=== PATIENT | male | born 2000 | race Caucasian/White ===

== ENCOUNTER → 2019-07-05 | Outpatient (CLI) | payer OTHER ==
--- NOTE | 2019-07-05 19:28 | REPVR ---
PROCEDURE INFORMATION: Exam: CT Maxillofacial Without Contrast Exam date and time: 07/05/2019 6:37 PM Age: 18 years old Clinical indication: Screening exam; Preop for oral surgery TECHNIQUE: Imaging protocol: Computed tomography images of the face without contrast. Radiation optimization: All CT scans at this facility use at least one of these dose optimization techniques: automated exposure control; mA and/or kV adjustment per patient size (includes targeted exams where dose is matched to clinical indication); or iterative reconstruction. COMPARISON: No relevant prior studies available. FINDINGS: Orbits: Orbits are normal. Globes are unremarkable. Sinuses: Normal. No air-fluid levels. Bones/joints: No acute fracture. Dental: The maxillary incisors are angulated anteriorly resulting in malocclusion. Soft tissues: Unremarkable. IMPRESSION: 1. No acute findings. 2. Malocclusion. Electronically signed by: Kings Renee On 07/05/2019 19:28:10 PM
== END ==
LOC: M RAD 18:10
PROVIDERS: ATTEND Dentist
DX: Z01.818 Encounter for other preprocedural examination (principal); M26.4 Malocclusion, unspecified

== ENCOUNTER → 2019-07-25 | Outpatient (CLI) | payer OTHER ==
--- NOTE | 2019-07-25 10:02 | REP ---
MAXILLOFACIAL CT STUDY WITHOUT CONTRAST: HISTORY: Preop. Surgical procedure. Orthognathic surgery planned. Comparison maxillofacial CT study July 05, 2019. TECHNIQUE: Helical scanning is acquired. 3 mm axial, MPR coronal and MPR sagittal images are reformatted for interpretation. 0.5 mm slices are acquired as well as requested. FINDINGS: The maxillary, sphenoidal, ethmoidal, frontal, and mastoid sinuses are clear. The paranasal sinuses in general are large and extensively developed. This is unchanged. There is slight rightward deviation of the nasal septum without a septal beak. Nasal turbinate and soft tissues are unremarkable. No nasal polyp is seen. Ostiomeatal complexes are patent bilaterally. 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 No bony destructive lesion is seen. No change from the recently performed comparison study. Electronically Signed by Melo Castro MD 07/25/2019 10:04 A
== END ==
LOC: M RAD 09:26
PROVIDERS: ATTEND Dentist
DX: Z01.818 Encounter for other preprocedural examination (principal); J34.2 Deviated nasal septum

== ENCOUNTER → 2019-10-27 | Outpatient (CLI) | payer OTHER | LOC: M LABSMTC 09:20 | PROVIDERS: ATTEND Anesthesiology | DX: Z03.818 Encounter for observation for suspected exposure to other biological agents ruled out (principal); Z11.59 Encounter for screening for other viral diseases | CPT/HCPCS: C9803; U0003 ==

== ENCOUNTER 2019-10-30 07:30 | Observation (INO) | payer BC, OTHER ==
[~2019-10-30] VITALS: Ht 193 cm; Wt 118.7 kg
[~2019-10-30 07:30] MED LIST: LR 1,000 ML IV ONE; ceFAZolin SOD 2 GM in IV 1 EA IV ONE; dexameTHASONE 4 MG/ML 1ML VIAL (J1100 PER 1MG) IV ONE
--- NOTE | 2019-11-01 11:58 | HPEPDOC ---
General Surgery H&P Date of Admission Nov 04, 2019 Primary Care Physician: Yasir Kapoor DDS Attending Physician: Yasir Kapoor DDS History and Physical CHIEF COMPLAINT: Mandibular AP hypoplasia and mandibular asymmetry. HISTORY OF PRESENT ILLNESS: Patient has been in ortho for 4 years in preparation for the surgery. ALLERGIES: NKDA HOME MEDICATIONS: None PAST MEDICAL HISTORY: 1. Denies PAST SURGICAL HISTORY: 1. [place] tooth removal 2018, No anesthetic complications PERSONAL/SOCIAL HISTORY: Smokes < .5 PPD and occasional marijuana use. REVIEW OF SYSTEMS: GENERAL: Denies chills, fatigue, fever, weight gain and weight loss. HEENT: Denies blurred vision and double vision. Denies ear symptoms. Denies hoarseness. Mandibular Ap hypoplasia. Retrognathia. NECK: Denies any neck pain, FROM. CARDIOVASCULAR: Denies chest pain and palpitations, RRR no M/R/G MUSCULOSKELETAL: Denies arthralgias, back pain and thrombophlebitis. SKIN: Denies rash. NEUROLOGIC: Denies headache, stroke and transient ischemic attack. PSYCHIATRIC: Denies anxiety and depression. ENDOCRINE: Denies thyroid disease. HEMATOLOGY/ONCOLOGY: Denies any bleeding or clotting disorder. HEART: Denies any chest pains, palpitations, paroxysmal dyspnea, orthopnea. PULMONARY: Denies chronic cough, dyspnea and wheezing. GASTROINTESTINAL: Denies rectal bleeding, family history of colon cancer, constipation, diarrhea, dysphagia, heartburn and jaundice. GENITOURINARY: Denies dysuria, frequency, hematuria and nocturia. ENDOCRINE: Denies polydipsia, polyphagia, polyuria, heat or cold intolerance. INFECTIOUS: Denies any recent upper respiratory tract infection, UTI, need for use of antibiotics. NUTRITION: Reports good appetite. PHYSICAL EXAMINATION: VITAL SIGNS:BP 126/76, HR 67, SPO2 98 GENERAL APPEARANCE: Patient seen at bedside, appears comfortable. Awake, alert, oriented. HEENT: Normocephalic, atraumatic. Armstrong palpebral conjunctivae. Anicteric sclerae. Lips moist. CHEST: No chest wall abnormalities. Normal respiratory motion/effort. NECK: Supple. No thyromegaly. No lymphadenopathies. LUNGS: Lung sounds are clear to auscultation bilaterally. No wheezing appreciated. HEART: No chest wall abnormalities. Heart rate and rhythm are regular with no murmurs. ABDOMEN: Abdomen is obese, soft, slightly rounded. No hepatosplenomegaly. No umbilical or groin herniations, nondistended. No noticeable rebound or guarding. No grimacing with palpation. No rebound tenderness. No masses appreciated. SKIN: Warm, moist. EXTREMITIES: Extremities have no deformities. No edema identified. LABORATORY DATA: NONE. MICROBIOLOGY:NONE IMAGING: Pano and CBCT IMPRESSION AND PLAN: 1> Bilateral Saggital Split Osteotomy and Horizontal Mandibular Osteotomy under GA Home Medications No Active Prescriptions or Reported Meds Allergies Coded Allergies: No Known Allergies (Unverified , 10/23/19) Yasir Kapoor DDS Nov 01, 2019 11:58
[2019-11-04] MEDS ORDERED: dexameTHASONE 4 MG/ML 1ML VIAL (J1100 PER 1MG) IV ONE (07:00)
[2019-11-04] MEDS ORDERED: ceFAZolin SOD 2 GM in IV 1 EA IV ONE (07:00)
[2019-11-04] MEDS ORDERED: LR 1,000 ML IV ONE (07:00)
[2019-11-04] MEDS ORDERED: LIDOCAINE 2% W/ EPINEPHRINE 1.7 ML DENTAL INJ ONE ×2 (16:20)
[2019-11-04] MEDS ORDERED: CHLORHEXIDINE GLUCONATE 0.12 % 15ML UDC (PERIDEX ORAL RINSE) ONE (16:20)
[2019-11-04] MEDS ORDERED: LIDOCAINE 2% 100MG/5ML SDV (FOR ANES.) As Ordered ONE (17:23)
[2019-11-04] MEDS ORDERED: ePHEDrine SULFATE 25 MG/5 ML(5MG/ML) SYRINGE As Ordered ONE (17:23)
[2019-11-04] MEDS ORDERED: propofoL 200 MG/20 ML VIAL As Ordered ONE (17:23)
[2019-11-04] MEDS ORDERED: MIDAZOLAM INJ 2MG/2ML VIAL (J2250 PER 1MG) As Ordered ONE (17:23)
[2019-11-04] MEDS ORDERED: SUGAMMADEX SODIUM 500 MG/5 ML VIAL (BRIDION) As Ordered ONE (17:23)
[2019-11-04] MEDS ORDERED: ONDANSETRON 4MG/2ML VIAL As Ordered ONE (17:23)
[2019-11-04] MEDS ORDERED: PHENYLephrine HCL 500 MCG/5 ML (100MCG/ML) SYRINGE (J2370) As Ordered ONE (17:23)
[2019-11-04] MEDS ORDERED: fentaNYL 250 MCG/5 ML INJECTION (J3010) As Ordered ONE (17:23)
[2019-11-04] MEDS ORDERED: ACETAMINOPHEN 1000MG 100ML IV BTL (OFIRMEV) (J0131 PER 10MG) As Ordered ONE (17:23)
[2019-11-04] MEDS ORDERED: ROCURONIUM BROMIDE 50 MG/5 ML VIAL As Ordered ONE (17:23)
[2019-11-04] MEDS ORDERED: dexameTHASONE 4 MG/ML 1ML VIAL (J1100 PER 1MG) As Ordered ONE (17:23)
[2019-11-04] MEDS ORDERED: METOCLOPRAMIDE INJ 10MG/2ML VIAL (J2765 PER 1) As Ordered ONE (17:23)
[2019-11-04] MEDS ORDERED: LIDOCAINE 2% W/ EPINEPHRINE 1.7 ML DENTAL INJ SM ONE (17:33)
[2019-11-04] MEDS ORDERED: CHLORHEXIDINE GLUCONATE 0.12 % 15ML UDC (PERIDEX ORAL RINSE) MT ONE (17:34)
[2019-11-04] MEDS ORDERED: diphenhydrAMINE 50MG/ML VIAL (J1200) ONE (18:21)
[2019-11-04] MEDS ORDERED: ESMOLOL INJ 100MG/10ML VIAL ONE (18:21)
[2019-11-04] MEDS ORDERED: hydrALAZINE 20MG/ML 1ML VIAL (J0360 PER 20MG) ONE (18:21)
[2019-11-04] MEDS ORDERED: LIDOCAINE 2% 100MG/5ML SDV (FOR ANES.) ONE (18:21)
[2019-11-04] MEDS ORDERED: HYDROmorphone HCL 2 MG/ML 1ML VIAL (J1170) ONE (18:21)
[2019-11-04] MEDS ORDERED: propofoL 200 MG/20 ML VIAL ONE ×2 (18:21→18:30)
[2019-11-04] MEDS ORDERED: LABETALOL 100MG/20ML VIAL ONE (18:21)
[2019-11-04] MEDS ORDERED: ROCURONIUM BROMIDE 50 MG/5 ML VIAL ONE (18:21)
[2019-11-04] MEDS ORDERED: propofoL 500 MG/50 ML VIAL ONE (18:30)
[2019-11-04] MEDS ORDERED: METOPROLOL 5 MG/5 ML VIAL As Ordered ONE (22:02)
[2019-11-04] MEDS ORDERED: LR 1,000 ML IV SCH ×2 (22:15→22:30)
[2019-11-04] MEDS ORDERED: METOPROLOL 5 MG/5 ML VIAL IV PRN (22:15)
[2019-11-04] MEDS ORDERED: oxyCODONE 5MG TAB PO PRN (22:15)
[2019-11-04] MEDS ORDERED: HYDROMORPHONE HCL 0.5 MG/ 0.5 ML SYRINGE (J1170 PER 1) IV PRN (22:15)
[2019-11-04] MEDS ORDERED: ONDANSETRON 4MG/2ML VIAL IV PRN (22:15)
[2019-11-04] MEDS ORDERED: LABETALOL 100MG/20ML VIAL IV PRN (22:15)
[2019-11-04] MEDS ORDERED: fentaNYL 100 MCG/2 ML INJECTION (J3010) IV PRN (22:15)
[2019-11-04] MEDS ORDERED: ONDANSETRON 4 MG TAB PO PRN (22:30)
[2019-11-05] VITALS (7 sets, daily range): BP systolic 108–152; BP diastolic 52–86
[2019-11-05] MEDS ORDERED: KETOROLAC 30 MG/ML 1ML VIAL IV SCH (00:45)
[2019-11-05] MEDS ORDERED: MORPHINE 2 MG/ML 1ML VIAL (J2270) IV PRN (00:45)
[2019-11-05] MEDS: ONDANSETRON 4MG/2ML VIAL IV SCH ×2 (01:53→09:22)
[2019-11-05] MEDS: IBUPROFEN 600MG TAB PO PRN ×2 (01:53→09:21)
[2019-11-05] MEDS: dexameTHASONE 4 MG/ML 1ML VIAL (J1100 PER 1MG) IV SCH ×2 (01:54→09:22)
[2019-11-05] MEDS: PERCOCET 5MG/325MG TAB PO PRN ×2 (04:54→15:36)
[2019-11-05] MEDS: AMOXICILLIN 500 MG CAP PO SCH ×2 (05:33→14:13)
[2019-11-05] MEDS ORDERED: AMOXICILLIN 500 MG CAP PO SCH (09:00)
[2019-11-05] MEDS ORDERED: CHLORHEXIDINE GLUCONATE 0.12 % 15ML UDC (PERIDEX ORAL RINSE) As Ordered ONE (12:30)
[2019-11-05] MEDS ORDERED: CHLORHEXIDINE GLUCONATE 0.12 % 15ML UDC (PERIDEX ORAL RINSE) MT SCH (18:00)
[2019-11-06] MEDS ORDERED: CHLORHEXIDINE GLUCONATE 0.12 % 15ML UDC (PERIDEX ORAL RINSE) MT SCH (18:00)
--- NOTE | 2019-11-12 12:45 | RO ---
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 FINDINGS: During the surgery were consistent with the preoperative diagnoses. PROCEDURES COMPLETED: Bilateral sagittal split osteotomy with horizontal mandibular osteotomy and internal fixation. SURGEON: Yasir Kapoor DDS [employer]REAR[employer] MODEL MAKER: Mr. Concepcion ANESTHESIA: Provided by Mr. Ricks and Dr. Curran SPECIMENS: None. ESTIMATED BLOOD LOSS: 1200 mL FLUIDS: 3 liters of lactated Ringer were replaced during the surgery. 500 mL of urine were collected. COMPLICATIONS: There were no complications today. CASE: The patient was admitted to the hospital for overnight observation and continuous monitoring in the intensive care unit (ICU) in stable condition and with no further complications. INDICATIONS FOR THE PROCEDURE: Frank is a 19-year-old male, well known to the oral surgery practice at [facility], with a history of poor jaw growth in the mandible, as well as asymmetry and microgenia. After removing his wisdom teeth last year, we discussed surgical options. These included no surgery or advancement of his lower jaw and chin. Frank would like to undergo this procedure in the main operating room, and all the necessary paperwork was completed. All the risks, complications, and alternatives to the procedure were discussed, and all his questions were answered. DESCRIPTION OF THE PROCEDURE: The patient was seen and identified in the preoperative holding area. All necessary paperwork was completed. He was taken to operating room #8, where he was placed under general anesthesia via nasal endotracheal intubation with no complications. The tube was secured in the head wrap by the oral maxillofacial surgeon. The patient was prepped and draped in a sterile fashion. Time-out was then conducted. The throat was then suctioned clean and dry, and a throat pack was placed. Local anesthetic in the form of 2% lidocaine with 1:100,000 epinephrine was injected along the mandible and the maxilla. After injecting the local anesthetic, intermaxillary fixation screws were placed along the maxilla where the patient did not have orthodontic appliances. Several were also placed in the mandible to aid in the surgical preparation. We then proceeded with exposure of the bilateral sagittal split osteotomy (BSSO) sites. A [place] tip Bovie was used to create an incision along the ascending border of the ramus from mid ramus extending along the gingiva to the level of the first premolar. A full mucoperiosteal flap and the subperiosteal fascia was then raised. After exposing the lateral border of the mandible, the lingual border was then exposed. We proceeded to strip the temporalis muscle and placed a Sourav for retraction. At that time, we identified the inferior alveolar nerve (TIERA) at its entry point. A nerve hook was used to beatriz this site, and reciprocating saw with copious amounts of irrigation was used to create an osteotomy above the entry point of the TIERA extending in a sagittal fashion to the level of the medial area of the first molar and then extending inferiorly to penitentiary through the inferior border. After creating the sagittal osteotomy, we proceeded with widening the osteotomy using a series of osteotomes, first the thin curved osteotome followed by a fiber handle osteotome and finally a [place] receivables specialist and were introduced, and the split was completed. The nerve was found to be completely in the distal segment. It was removed and freed completely from the proximal segment. The nerve was intact throughout the procedure. We proceeded with smoothing of the proximal and distal segments and then proceeded with the same procedure to complete the split on the left side. On both the left and the right, there were no complications, and the split was completed without any damage to the nerve. We then proceeded with placement of the patient into the presurgically-created splint. The splint was wired into place with 25-gauge wires. The mandible was then brought forward and wired into place using 25-gauge loop wires with the mandible in place. Four screws were placed into the left and right sides of the mandible through a trocar incision. These screws were positional screws and used to position the proximal and distal segments with the proximal segments fully seated in the inferior borders of the two segments aligned. After fixation of the mandible in the left and right, the patient was released from maximum mandibular fixation, and his occlusion was checked and found to be stable and reproducible. We then proceeded with an incision through the patient's lower lip into the muscle belly using the Bovie cautery. The incision was then turned through the muscle and directed towards the subperiosteal plane, where exposure was created for the horizontal mandibular osteotomy. After subperiosteal exposure was completed, the mental nerves were carefully marked, and a distance of at least 5 mm was created to avoid any damage to the mental nerves. A reciprocating saw was then used to create an osteotomy from the left to the right all the way through the bone. With the genial portion of the mandible now mobile, a 2-mm genial advancement plate was placed. The mandible was corrected in its asymmetry to be moved approximately 1 mm to the left, 2 mm forward, and 0.5 mm up. After verifying that the genial portion of the mandible was in the correct position, the plate was secured using five unilateral bone screws. This area was then thoroughly irrigated, as were the wounds for the sagittal split osteotomies with copious amounts of normal saline. After irrigating thoroughly, these wounds were closed with a trio of running chromic gut suture. In the area of the mentalis muscle, a 3-0 Vicryl was used to resuspend the muscle, and then the chromic was used to close the mucosa. A 5-0 Prolene was used to close both of the wounds in the left and right cheek. After closure, the patient's occlusion was checked again and found to be stable and reproducible. The throat was suctioned clean and dry, and the throat pack was removed. Local anesthetic in the form of 2% lidocaine with 1:100,000 epinephrine, two carpules were injected along the mandible to aid in postoperative pain control. The patient was then allowed to emerge from general anesthesia and did so without any complications. He was taken to postanesthesia care unit (PACU) in stable condition and later admitted to the hospital for overnight observation, pain control, and monitoring.
== END 2019-11-05 16:15 | disposition home or self-care (01) ==
LOC: EDSTATUS 07:30 → INTOOBSV 11-04 12:39 → M OR 11-04 12:39 → M ICU 11-05 00:10
PROVIDERS: ADMIT Dentist; ATTEND Dentist
DX: M26.04 Mandibular hypoplasia (principal); M26.06 Microgenia; Q89.9 Congenital malformation, unspecified; F17.218 Nicotine dependence, cigarettes, with other nicotine-induced disorders; F12.10 Cannabis abuse, uncomplicated
CPT/HCPCS: 21193; 96361; 96374; 96375; 96376; C1713; J0131; J0360; J0690; J1100; J1170; J1200; J2250; J2370; J2405; J2765; J3010; U0002

== ENCOUNTER → 2024-02-26 | Outpatient (REF) | payer BC | LOC: M LAB REF 16:50 | PROVIDERS: ATTEND Student in an Organized Health Care Education/Training Program | DX: R50.9 Fever, unspecified (principal) ==

== ENCOUNTER → 2024-02-26 | Outpatient (CLI) | payer BC | LOC: M WUC 10:56 | PROVIDERS: ATTEND Student in an Organized Health Care Education/Training Program | DX: R06.02 Shortness of breath (principal); R50.9 Fever, unspecified ==